=== PATIENT | female | born 1935 | race African-American/Black ===

== ENCOUNTER 2018-04-02 18:32 | Inpatient (IN) ==
--- NOTE | 2018-04-02 19:06 | ED ---
HPI General Chief Complaint: Chest Pain Stated Complaint: feels faint, trouble breathing yesterday, trouble Time Seen by Provider: 04/02/18 18:51 Source: patient Mode of arrival: ambulatory Limitations: no limitations History of Present Illness HPI narrative: 82-year-old female complains of dizziness, nausea vomiting, shortness of breath and chest discomfort. Patient states that she started having intermittent chest tightness anterior chest since last night. Patient states that the chest pain is not associate with exertion. Patient states that she has wheezing and short of breath since last night also. Patient states that she started having intermittent nausea vomiting and diarrhea this evening. Patient started having intermittent dizziness and last night also. Patient has history of COPD. Patient did use inhaler in the past month not recently. Patient has history of CAD status post cardiac cath 2 years ago and has been treated medically. Patient has history of hypertension. Patient denies history of diabetes or hyperlipidemia. Patient is a non-smoker. Patient complains of generalized malaise and weakness and near fainting today. MD complaint: Reports chest pain STEMI Alert: No Onset (ago): hour(s) Duration: intermittent Onset: during rest Pain location: Reports substernal Severity: mild Severity scale (1-10): 4 Quality: Reports tightness Pain radiation: Reports none Relieving factors: nothing Exacerbating factors: nothing Associated symptoms: Reports nausea, vomiting and dyspnea Treatments prior to arrival chest pain: Reports none Related Data Allergies Allergy/AdvReac Type Severity Reaction Status Date / Time codeine Allergy Severe RASH Verified 04/02/18 19:10 Review of Systems ROS: all other systems reviewed are negative PMFSH History History Provided By: Patient Social History Social History Smoking Status: Never smoker How Often Do You Have a Drink Containing Alcohol: Never Recent Travel in [facility] within the Last 8 Weeks: No Recent Out of Country Travel within the Last 8 Weeks: No Exam Narrative Exam Narrative: GENERAL: Well-nourished, well-developed patient. SKIN: Focused skin assessment warm/dry. HEAD: Normocephalic. EYES: No scleral icterus. No injection or drainage. NECK: Supple, trachea midline. No JVD or lymphadenopathy. CARDIOVASCULAR: Regular rate and rhythm without murmurs, gallops, or rubs. RESPIRATORY: Breath sounds equal bilaterally. No accessory muscle use. GASTROINTESTINAL: Abdomen soft, non-tender, nondistended. MUSCULOSKELETAL: No cyanosis, or edema. BACK: Nontender without obvious deformity. No CVA tenderness. Course Initial Documented Vital Signs Temperature 97.7 F 04/02/18 18:46 Pulse Rate 88 04/02/18 18:46 Respiratory Rate 22 04/02/18 18:46 Blood Pressure 202/101 H 04/02/18 18:46 Pulse Oximetry 94 L 04/02/18 18:46 Last Documented Vital Signs Temperature 97.7 F 04/02/18 18:46 Pulse Rate 70 04/02/18 19:25 Respiratory Rate 18 04/02/18 19:25 Blood Pressure 168/88 H 04/02/18 19:25 Pulse Oximetry 98 04/02/18 19:25 Medical Decision Making MDM Narrative Medical decision making narrative: 82-year-old female with nausea vomiting diarrhea and chest discomfort. History of COPD. History of CAD. Aspirin 325 mg p.o. given. Albuterol Atrovent unit dose treatment x1. Normal saline solution 100 cc an hour. Zofran 4 mg IV. Phenergan 25 mill grams IM. Medical Screen Exam Complete: Yes Emergency Medical Condition: Yes Lab Data Lab results reviewed: Yes I reviewed the patient's lab results. Result diagrams: 04/02/18 19:15 04/02/18 19:15 Lab Results 04/02/18 04/02/18 04/02/18 Range/Units 19:15 19:15 19:15 WBC 9.2 (4.0-11.0) th/mm3 RBC 4.78 (4.00-5.30) mil/mm3 Hgb 13.8 (11.6-15.3) gm/dL Hct 42.3 (35.0-46.0) % MCV 88.4 (80.0-100.0) fL MCH 28.9 (27.0-34.0) pg MCHC 32.6 (32.0-36.0) % RDW 14.5 (11.6-17.2) % Plt Count 210 (150-450) th/mm3 MPV 7.5 (7.0-11.0) fL Neut % (Auto) 47.8 (16.0-70.0) % Lymph % (Auto) 40.3 (9.0-44.0) % [place] % (Auto) 6.5 (0.0-8.0) % Eos % (Auto) 4.2 H (0.0-4.0) % Baso % (Auto) 1.2 (0.0-2.0) % Neut # (Auto) 4.4 (1.8-7.7) th/mm3 Lymph # (Auto) 3.7 (1.0-4.8) th/mm3 [place] # (Auto) 0.6 (0.0-0.9) th/mm3 Eos # (Auto) 0.4 (0.0-0.4) th/mm3 Baso # (Auto) 0.1 (0.0-0.2) th/mm3 WBC Differential . Differential Comment Auto diff final PT 10.0 (9.8-11.6) sec INR 1.0 Ratio APTT 22.9 L (23.4-31.7) sec D-Dimer Quant (PE/DVT) 1.36 H (0.00-0.50) mg/L FEU Sodium 140 (136-145) meq/L Potassium 3.8 (3.5-5.1) meq/L Chloride 107 (98-107) meq/L Carbon Dioxide 23.5 (21.0-32.0) meq/L Anion Gap 10 (5-15) meq/L BUN 20 H (7-18) mg/dL Creatinine 1.12 H (0.50-1.00) mg/dL Estimated GFR 56 L (>89) mL/min Random Glucose 131 H (74-106) mg/dL Calcium 8.5 (8.5-10.1) mg/dL Total Bilirubin 0.6 (0.2-1.0) mg/dL AST 22 (15-37) U/L ALT 15 (10-53) U/L Alkaline Phosphatase 98 (45-117) U/L Total Creatine Kinase 86 (26-192) U/L Troponin I Less than 0.02 L (0.02-0.05) ng/mL Total Protein 7.5 (6.4-8.2) g/dL Albumin 4.0 (3.4-5.0) g/dL Imaging Data Attestation: I personally reviewed and interpreted this imaging study as follows : Radiologist's impression: Chest X-Ray 04/02/18 19:01 CONCLUSION: Mild cardiomegaly with minimal bibasilar parenchymal changes 1 cm nodule right upper lobe. Chest CTA 04/02/18 20:39 CONCLUSION: 1. No evidence for pulmonary embolism. 2. Spiculated nodule right upper lobe measures 16 x 11 mm. This is concerning for neoplasm. 3. Parenchymal nodule with central cavitation left lower lobe measures 2.8 x 2.4 cm also concerning for neoplasm versus less likely infectious process. This is amenable to percutaneous CT-guided biopsy. 4. Scattered parenchymal densities in the lower lobes likely atelectasis. 5. Enlarged heterogeneous thyroid gland containing multiple nodules greater on the right. Discharge Plan Discharge Disposition Patient Disposition: 30 Still Patient Discharge Details Diagnosis: Chest pain, Gastroenteritis, Lung mass, COPD with acute exacerbation Physicians Team ED Provider: You Jorgensen Primary Care Provider: Primary Care Chasity Matthews Discharge Instructions Patient Printed Instructions: Chest Pain (ED) Discharge Interventions Interventions: Vital Signs Last Done: 04/02/18 19:25 Status ED Status: With Doctor
--- NOTE | 2018-04-02 19:28 | XR ---
EXAM DATE: 04/02/2018 7:25 PM EST AGE/SEX: 82 years / Female INDICATIONS: Short of breath and chest tightness. CLINICAL DATA: This is the patient's initial encounter. Patient reports that signs and symptoms have been present for 1 day and indicates a pain score of 1/10. MEDICAL/SURGICAL HISTORY: None. CABG. COMPARISON: No prior exams available for comparison. FINDINGS: The heart is minimally enlarged with bibasilar parenchymal changes worse on the left. Small nodule is seen laterally in the right lung measuring 1 cm. There is no pleural effusion. There is no pneumothorax. Degenerative changes about both shoulders. CONCLUSION: Mild cardiomegaly with minimal bibasilar parenchymal changes 1 cm nodule right upper lobe. Electronically signed by: Gilberto Newberry MD 04/02/2018 7:27 PM EST
[2018-04-02 19:41] LABS: Baso # (Auto) 0.1 th/mm3 (0.0-0.2); Baso % (Auto) 1.2 % (0.0-2.0); Eos # (Auto) 0.4 th/mm3 (0.0-0.4); Eos % (Auto) 4.2 % (0.0-4.0); Hematocrit 42.3 % (35.0-46.0); Hemoglobin 13.8 gm/dL (11.6-15.3); Lymph # (Auto) 3.7 th/mm3 (1.0-4.8); Lymph % (Auto) 40.3 % (9.0-44.0); Mean Corpuscular HGB Conc 32.6 % (32.0-36.0); Mean Corpuscular Hemoglobin 28.9 pg (27.0-34.0); Mean Corpuscular Volume 88.4 fL (80.0-100.0); Mean Platelet Volume 7.5 fL (7.0-11.0); Mono # (Auto) 0.6 th/mm3 (0.0-0.9); Mono % (Auto) 6.5 % (0.0-8.0); Neut # (Auto) 4.4 th/mm3 (1.8-7.7); Neut % (Auto) 47.8 % (16.0-70.0); Platelet Count 210 th/mm3 (150-450); Red Blood Count 4.78 mil/mm3 (4.00-5.30); Red Cell Distribution Width 14.5 % (11.6-17.2); White Blood Count 9.2 th/mm3 (4.0-11.0)
[2018-04-02 19:52] LABS: Activated Partial Thrombo Time 22.9 sec (23.4-31.7); D-Dimer 1.36 mg/L FEU (0.00-0.50)
[2018-04-02 20:01] LABS: Anion Gap 10 meq/L (5-15); Aspartate Aminotransferase 22 U/L (15-37); Blood Urea Nitrogen 20 mg/dL (7-18); Calcium 8.5 mg/dL (8.5-10.1); Carbon Dioxide 23.5 meq/L (21.0-32.0); Chloride 107 meq/L (98-107); Glomerular Filtration Rate 56 mL/min (>89); Glucose,Random 131 mg/dL (74-106); Potassium 3.8 meq/L (3.5-5.1); Sodium 140 meq/L (136-145)
[2018-04-02 20:02] LABS: Alanine Aminotransferase 15 U/L (10-53)
[2018-04-02 20:06] LABS: Alkaline Phosphatase 98 U/L (45-117); Total Protein 7.5 g/dL (6.4-8.2)
[2018-04-02 20:09] LABS: Creatine Kinase 86 U/L (26-192)
--- NOTE | 2018-04-02 22:04 | CT ---
EXAM DATE: 04/02/2018 9:57 PM EST AGE/SEX: 82 years / Female INDICATIONS: Dizziness with chest pressure. Elevated d-dimer; rule out pulmonary embolus. CLINICAL DATA: This is the patient's initial encounter. Patient reports that signs and symptoms have been present for 1 day and indicates a pain score of 3/10. MEDICAL/SURGICAL HISTORY: None. None. RADIATION DOSE: 10.23 CTDI (mGy) COMPARISON: No prior exams available for comparison. TECHNIQUE: Volumetric scanning was performed using a multi-row detector CT scanner during bolus infu gael of 75 ml Omnipaque 350 (iohexol) nonionic water-soluble contrast as a single exam dose. The ashley a was post processed with a variety of visualization algorithms including full volume maximum intensi ty projection and sliding thin slab reformation. Using automated exposure control and adjustment of t he mA and/or kV according to patient size, radiation dose was kept as low as reasonably achievable to obtain optimal diagnostic quality images. DICOM format image data is available electronically for r eview and comparison. FINDINGS: Pulmonary Arteries: No filling defects are seen in the pulmonary arteries out to the subsegmental ve ssels. The left and right pulmonary arteries are normal in diameter. Lung: Parenchymal nodule in the left lower lobe with small area of cavitation is seen measuring 2.8 x 2.4 cm. Scattered parenchymal densities in the lower lobes bilaterally. There is also partially spi culated nodule in the right upper lobe laterally measuring 16 x 11 mm.. Effusion: None. Mediastinum: No evidence of mediastinal or hilar adenopathy. Other: The axilla is unremarkable. Enlarged heterogeneous thyroid gland greater on the right which c ontains nodules. There is diverticulosis of the colon. CONCLUSION: 1. No evidence for pulmonary embolism. 2. Spiculated nodule right upper lobe measures 16 x 11 mm. This is concerning for neoplasm. 3. Parenchymal nodule with central cavitation left lower lobe measures 2.8 x 2.4 cm also concerning for neoplasm versus less likely infectious process. This is amenable to percutaneous CT-guided biopsy . 4. Scattered parenchymal densities in the lower lobes likely atelectasis. 5. Enlarged heterogeneous thyroid gland containing multiple nodules greater on the right. Electronically signed by: Igor Bentley MD 04/02/2018 10:03 PM EST
[2018-04-03] MEDS ORDERED: Acetaminophen 325 MG Tablet PO PRN (02:29)
[2018-04-03] MEDS ORDERED: Bisacodyl 10 MG Supp RECTAL PRN (02:29)
--- NOTE | 2018-04-03 02:39 | P.HP ---
History of Present Illness Service: [facility] Primary Care Physician: No Primary Care Physician History of Present Illness: 82-year-old female with a past medical history significant for coronary artery disease and COPD presents to the emergency department for evaluation of dizziness, nausea, vomiting, shortness of breath and chest discomfort. The patient reports she started having intermittent chest tightness since last night. She states that she had abdominal pain starting yesterday and felt as though the room was spinning around her. She has had several episodes of emesis and a sustains feeling of nausea. She denies any fever/chills. No diarrhea. No focal neurologic deficits. Review of Systems All other systems reviewed negative except as stated in HPI PMFSH - History History Provided By: Patient - Medical History Medical History: Medical History (Last Updated 04/03/18 @ 02:35 by Zaira Gilman MD) COPD (chronic obstructive pulmonary disease) Coronary artery disease History of hysterectomy - Surgical History Surgical History: Surgical History (Last Updated 04/03/18 @ 02:35 by Zaira Gilman MD) History of cataract surgery History of cholecystectomy - Family History Family History: Family History (Last Updated 04/03/18 @ 02:35 by Zaira Gilman MD) Other Coronary artery disease - Tobacco History Smoking Status: Never smoker - Alcohol History How Often Do You Have a Drink Containing Alcohol: Never - Travel History Recent Travel in the [place] Within the Last 8 Weeks: No Recent Travel Out of the Country Within the Last 8 Weeks: No - Immunization History Tetanus Immunization: Unsure Medications and Allergies Active Medications: Active Medications Acetaminophen (Tylenol) 650 mg PO Q4H PRN PRN Reason: Temp > 100.4 Al Hydroxide/Mg Hydroxide (Milk Of Magnesia Liq) 30 ml PO Q12H PRN PRN Reason: Mild Constipation Bisacodyl (Dulcolax Supp) 10 mg RECTAL DAILY PRN PRN Reason: SEVERE CONSITIPATION Heparin Sodium (Porcine) (Heparin Inj) 5,000 units SQ Q12H CINTIA Sodium Chloride (Ns Inj) 1,000 mls @ 70 mls/hr IV.CONT .[id number] CINTIA Lactulose (Lactulose Liq) 30 ml PO DAILY PRN PRN Reason: SEVERE CONSITIPATION Ondansetron HCl (Zofran Inj) 4 mg IV.PUSH Q6H PRN PRN Reason: NAUSEA OR VOMITING Senna/Docusate Sodium (Dayanna-Colace) 1 tab PO BID CINTIA Sennosides (Senokot) 17.2 mg PO Q12H PRN PRN Reason: Moderate Constipation Allergies Allergy/AdvReac Type Severity Reaction Status Date / Time codeine Allergy Severe RASH Verified 04/02/18 19:10 Home Medications Medication Instructions Recorded Confirmed Type Unable to Obtain Home Meds 04/02/18 04/02/18 History Exam Vital signs: Vital Signs 04/02/18 18:46 04/02/18 19:21 04/02/18 19:25 Temperature 97.7 F Pulse Rate 88 88 70 Respiratory Rate 22 22 18 Blood Pressure 202/101 H 168/88 H Pulse Oximetry 94 L 98 04/02/18 23:00 Temperature Pulse Rate 78 Respiratory Rate 16 Blood Pressure 112/59 L Pulse Oximetry 99 Narrative: Gen.: No acute distress Head: Normocephalic. Atraumatic. EENT: Pupils equal round and reactive to light. Nose without drainage. Airway intact. Throat without injection. Cardiovascular: Regular rate and rhythm. No murmurs, rubs or gallops. Respiratory: Lungs clear to auscultation bilaterally. No wheezes or rhonchi. Abdomen: Soft, nontender, nondistended. No peritoneal signs. Musculoskeletal: No gross deformities. No edema. Skin: No obvious rashes or erythema. Neuro: Sensory and motor grossly intact. Cranial nerves II through XII grossly intact. Results - Labs CBC & Chem 7: 04/02/18 19:15 04/02/18 19:15 Labs: Laboratory Results - last 24 hr 04/02/18 04/02/18 04/02/18 19:15 19:15 19:15 WBC 9.2 RBC 4.78 Hgb 13.8 Hct 42.3 MCV 88.4 MCH 28.9 MCHC 32.6 RDW 14.5 Plt Count 210 MPV 7.5 Neut % (Auto) 47.8 Lymph % (Auto) 40.3 [place] % (Auto) 6.5 Eos % (Auto) 4.2 H Baso % (Auto) 1.2 Neut # (Auto) 4.4 Lymph # (Auto) 3.7 [place] # (Auto) 0.6 Eos # (Auto) 0.4 Baso # (Auto) 0.1 WBC Differential . Differential Comment Auto diff final PT 10.0 INR 1.0 APTT 22.9 L D-Dimer Quant (PE/DVT) 1.36 H Sodium 140 Potassium 3.8 Chloride 107 Carbon Dioxide 23.5 Anion Gap 10 BUN 20 H Creatinine 1.12 H Estimated GFR 56 L Random Glucose 131 H Calcium 8.5 Total Bilirubin 0.6 AST 22 ALT 15 Alkaline Phosphatase 98 Total Creatine Kinase 86 Troponin I Less than 0.02 L Total Protein 7.5 Albumin 4.0 - Imaging Impressions Chest X-Ray 04/02/18 19:01 CONCLUSION: Mild cardiomegaly with minimal bibasilar parenchymal changes 1 cm nodule right upper lobe. Chest CTA 04/02/18 20:39 CONCLUSION: 1. No evidence for pulmonary embolism. 2. Spiculated nodule right upper lobe measures 16 x 11 mm. This is concerning for neoplasm. 3. Parenchymal nodule with central cavitation left lower lobe measures 2.8 x 2.4 cm also concerning for neoplasm versus less likely infectious process. This is amenable to percutaneous CT-guided biopsy. 4. Scattered parenchymal densities in the lower lobes likely atelectasis. 5. Enlarged heterogeneous thyroid gland containing multiple nodules greater on the right. Caprini VTE Risk Assessment Caprini VTE Risk Assessment: Moderate/High Risk (score >= 2) Caprini Risk Assessment Model: Point Value = 1 Point Value = 2 Point Value = 3 Point Value = 5 Age 41-60 Minor surgery BMI > 25 kg/m2 Swollen legs Varicose veins or History of unexplained or recurrent spontaneous Oral contraceptives or hormone replacement Sepsis (< 1 month) Serious lung disease, including pneumonia (< 1 month) Abnormal pulmonary function Acute myocardial infarction Congestive heart failure (< 1 month) History of inflammatory bowel disease Medical patient at bed rest Age 61-74 Arthroscopic surgery Major open surgery (> 45 min) Laparoscopic surgery (> 45 min) Malignancy Confined to bed (> 72 hours) Immobilizing plaster cast Central venous access Age >= 75 History of VTE Family history of VTE Factor V Leiden Prothrombin [id number] Lupus anticoagulant Anticardiolipin antibodies Elevated serum homocysteine Heparin-induced thrombocytopenia Other congenital or acquired thrombophilia Stroke (< 1 month) Elective arthroplasty Hip, pelvis, or leg fracture Acute spinal cord injury (< 1 month) Prophylaxis Regimen: Total Risk Factor Score Risk Level Prophylaxis Regimen 0-1 Low Early ambulation 2 Moderate Order ONE of the following: *Sequential Compression Device (SCD) *Heparin 5000 units SQ BID 3-4 Higher Order ONE of the following medications: *Heparin 5000 units SQ TID *Enoxaparin/Lovenox 40 mg SQ daily (WT < 150 kg, CrCl > 30 mL/min) *Enoxaparin/Lovenox 30 mg SQ daily (WT < 150 kg, CrCl > 10-29 mL/min) *Enoxaparin/Lovenox 30 mg SQ BID (WT < 150 kg, CrCl > 30 mL/min) AND/OR *Sequential Compression Device (SCD) 5 or more Highest Order ONE of the following medications: *Heparin 5000 units SQ TID (Preferred with Epidurals) *Enoxaparin/Lovenox 40 mg SQ daily (WT < 150 kg, CrCl > 30 mL/min) *Enoxaparin/Lovenox 30 mg SQ daily (WT < 150 kg, CrCl > 10-29 mL/min) *Enoxaparin/Lovenox 30 mg SQ BID (WT < 150 kg, CrCl > 30 mL/min) AND *Sequential Compression Device (SCD) Assessment and Plan - Plan Assessment/plan: 1. Chest pain/shortness of breath Initial troponin negative EKG shows normal sinus rhythm, no ST segment elevations or depressions, personally reviewed ACS rule out pending; serial troponins/EKGs Aspirin 2. Nausea/vomiting Resolved Suspect secondary to gastroenteritis 3. CAD/COPD Continue home medications once reconciled FEN N.p.o. Electrolytes: Monitor and replete as needed NS at 70 cc/hour Heparin
[2018-04-03] MEDS: Sod Chloride 0.9% Inj 1,000 ML IV.CONT SCH (02:43)
[2018-04-03] MEDS ORDERED: Heparin - SQ 10,000 UNITS/ML Vial SQ SCH ×2 (03:00→09:00)
[2018-04-03 04:32] LABS: Troponin I 0.56 ng/mL (0.02-0.05)
[2018-04-03 08:09] LABS: Baso % (Auto) 0.5 % (0.0-2.0); Eos # (Auto) 0.2 th/mm3 (0.0-0.4); Eos % (Auto) 3.1 % (0.0-4.0); Hematocrit 38.2 % (35.0-46.0); Hemoglobin 12.7 gm/dL (11.6-15.3); Lymph # (Auto) 1.9 th/mm3 (1.0-4.8); Lymph % (Auto) 31.4 % (9.0-44.0); Mean Corpuscular HGB Conc 33.3 % (32.0-36.0); Mean Corpuscular Hemoglobin 29.7 pg (27.0-34.0); Mean Corpuscular Volume 89.4 fL (80.0-100.0); Mean Platelet Volume 7.9 fL (7.0-11.0); Mono # (Auto) 0.4 th/mm3 (0.0-0.9); Mono % (Auto) 6.5 % (0.0-8.0); Neut # (Auto) 3.6 th/mm3 (1.8-7.7); Neut % (Auto) 58.5 % (16.0-70.0); Platelet Count 179 th/mm3 (150-450); Red Blood Count 4.28 mil/mm3 (4.00-5.30); Red Cell Distribution Width 14.4 % (11.6-17.2); White Blood Count 6.2 th/mm3 (4.0-11.0)
[2018-04-03 08:27] LABS: Calcium 8.2 mg/dL (8.5-10.1); Carbon Dioxide 30.2 meq/L (21.0-32.0); Potassium 3.8 meq/L (3.5-5.1)
[2018-04-03 08:35] LABS: Troponin I 0.72 ng/mL (0.02-0.05)
[2018-04-03 08:47] LABS: CKMB Percent 1.6 % (0.0-4.0); Creatine Kinase MB 3.2 ng/mL (0.5-3.6)
[2018-04-03] MEDS: Senna/Docusate Sodium 8.6/50 MG Tablet PO SCH ×2 (09:21→21:59)
[2018-04-03] MEDS ORDERED: Heparin Drip 25,000 UNIT/250 ML BAG IV.CONT PRN (09:47)
--- NOTE | 2018-04-03 09:58 | P.PNIM ---
Subjective Interval history: Patient is lying down in bed, she currently denies any active chest pain. Physical Exam Vital signs: Vital Signs 04/02/18 18:46 04/02/18 19:21 04/02/18 19:25 Temperature 97.7 F Pulse Rate 88 88 70 Respiratory Rate 22 22 18 Blood Pressure 202/101 H 168/88 H Pulse Oximetry 94 L 98 04/02/18 23:00 04/03/18 00:45 04/03/18 02:45 Temperature Pulse Rate 78 66 66 Respiratory Rate 16 16 15 Blood Pressure 112/59 L 116/57 L 123/59 L Pulse Oximetry 99 99 99 04/03/18 06:55 04/03/18 09:17 Temperature 98.1 F Pulse Rate 66 65 Respiratory Rate 18 16 Blood Pressure 136/65 136/73 Pulse Oximetry 97 97 Narrative: General patient in no acute distress currently HEENT extraocular movements are intact, clear oropharyngeal mucosa, no JVD Cardiovascular S1-S2 audible, no murmurs rubs or gallops Respiratory clear to auscultation bilaterally Abdomen soft, nontender, nondistended, normal bowel sounds Extremities no edema 2+ distal pulses in bilateral upper and lower extremities Neuro cranial nerves II through XII intact Results - Labs CBC & Chem 7: 04/03/18 05:48 04/03/18 05:48 Laboratory Results - last 24 hr 04/02/18 04/02/18 04/02/18 19:15 19:15 19:15 WBC 9.2 RBC 4.78 Hgb 13.8 Hct 42.3 MCV 88.4 MCH 28.9 MCHC 32.6 RDW 14.5 Plt Count 210 MPV 7.5 Neut % (Auto) 47.8 Lymph % (Auto) 40.3 [place] % (Auto) 6.5 Eos % (Auto) 4.2 H Baso % (Auto) 1.2 Neut # (Auto) 4.4 Lymph # (Auto) 3.7 [place] # (Auto) 0.6 Eos # (Auto) 0.4 Baso # (Auto) 0.1 WBC Differential . Differential Comment Auto diff final PT 10.0 INR 1.0 APTT 22.9 L D-Dimer Quant (PE/DVT) 1.36 H Sodium 140 Potassium 3.8 Chloride 107 Carbon Dioxide 23.5 Anion Gap 10 BUN 20 H Creatinine 1.12 H Estimated GFR 56 L Random Glucose 131 H Calcium 8.5 Total Bilirubin 0.6 AST 22 ALT 15 Alkaline Phosphatase 98 Total Creatine Kinase 86 CK-MB (CK-2) CK-MB (CK-2) % Troponin I Less than 0.02 L Total Protein 7.5 Albumin 4.0 04/03/18 04/03/18 04/03/18 02:50 05:48 05:48 WBC 6.2 RBC 4.28 Hgb 12.7 Hct 38.2 MCV 89.4 MCH 29.7 MCHC 33.3 RDW 14.4 Plt Count 179 MPV 7.9 Neut % (Auto) 58.5 Lymph % (Auto) 31.4 [place] % (Auto) 6.5 Eos % (Auto) 3.1 Baso % (Auto) 0.5 Neut # (Auto) 3.6 Lymph # (Auto) 1.9 [place] # (Auto) 0.4 Eos # (Auto) 0.2 Baso # (Auto) 0.0 WBC Differential . Differential Comment Auto diff final PT INR APTT D-Dimer Quant (PE/DVT) Sodium 144 Potassium 3.8 Chloride 108 H Carbon Dioxide 30.2 Anion Gap 6 BUN 18 Creatinine 0.92 Estimated GFR 70 L Random Glucose 79 Calcium 8.2 L Total Bilirubin AST ALT Alkaline Phosphatase Total Creatine Kinase 191 199 H CK-MB (CK-2) 3.2 CK-MB (CK-2) % 1.6 Troponin I 0.56 H D 0.72 H* D Total Protein Albumin - Imaging Impressions Chest X-Ray 04/02/18 19:01 CONCLUSION: Mild cardiomegaly with minimal bibasilar parenchymal changes 1 cm nodule right upper lobe. Chest CTA 04/02/18 20:39 CONCLUSION: 1. No evidence for pulmonary embolism. 2. Spiculated nodule right upper lobe measures 16 x 11 mm. This is concerning for neoplasm. 3. Parenchymal nodule with central cavitation left lower lobe measures 2.8 x 2.4 cm also concerning for neoplasm versus less likely infectious process. This is amenable to percutaneous CT-guided biopsy. 4. Scattered parenchymal densities in the lower lobes likely atelectasis. 5. Enlarged heterogeneous thyroid gland containing multiple nodules greater on the right. Assessment and Plan - Plan This patient is an 82-year-old female with a diagnosis of hypertension, dyslipidemia as per the patient. The patient also has extensive tobacco smoking history approximately half pack per day for 25 years. The patient quit smoking approximately 19 years ago. She presents to our emergency department with complaints of left-sided dull chest pain that has been on and off for the past couple of days. 1. Non-ST segment elevation HI Patient presented with the symptoms mentioned above. EKG shows normal sinus rhythm no acute ST segment or T wave changes. Troponins initially were negative however are now increasing to 0.72. Follow- up troponin is pending. Patient was given aspirin. She will be started on Plavix and heparin drip. A statin and beta-vincent were also added to the patient's medication regimen. Hemoglobin is stable, no obvious bleeding noted from the patient. The patient agrees to starting heparin drip after the risks and benefits were discussed with the patient. Cardiology has been consulted to evaluate the patient. She will be given morphine and nitroglycerin as needed for chest pain. Currently there is no active chest pain. As per the patient she states that she may have had a cardiac catheterization done in [place] by her processing inspector who is Dr. Rodriguez and she says that the cardiac catheterization did not show any significant abnormalities. 2. Hypertension Continue current medication regimen. Her blood pressure medications will be adjusted as needed. 3. Pulmonary nodules CT of the chest was done which was negative for pulmonary embolus. Findings did show a right upper lobe 16 x 11 mm nodule and a left lower lobe 2.8 x 2.4 cm lesion which are findings concerning for possible malignancy. Once the patient has been stabilized she would likely need percutaneous biopsy of the nodules given her history. DVT prophylaxis, patient is currently on heparin drip.
[2018-04-03] MEDS: Metoprolol Tartrate 25 MG Tablet PO SCH ×2 (10:48→21:57)
[2018-04-03 11:26] LABS: Activated Partial Thrombo Time 26.6 sec (23.4-31.7); INR 1.1 Ratio; Prothrombin Time 10.7 sec (9.8-11.6)
--- NOTE | 2018-04-03 15:28 | P.CONCA ---
History of Present Illness Service: CARDIOLOGY service call Consult date: 04/03/18 Requesting Physician: Charlette Lagos Reason for Consult: NSTEMI Primary Care Provider: No Primary Care Physician Chief Complaint: chest pain History of Present Illness: 82 yo lady with HTN, HLD, COPD, former tobacco use and quit 19 years ago admitted 04/02/2018 with chest pain. She repots she was having dinner 2 nights ago and developed SSCP, nonradiating, but with associated nausea, dizziness and vomiting. Was in usual state of health prior to abrupt onset other than did feel some fatigue earlier in the day. In ER initial troponin was <0.02 and ECG nonischemic. She was given Aspirin and observed. Repeat troponin was elevated to 0.72 and repeat ECG shows dynamic anterior T-wave changes suggestive of ischemia. She was chest pain free during ER evaluation and has not had recurrence of symptoms. Was started on metoprolol tartrate 12.5mg bid, atorvastatin 40mg daily, aspirin 325mg daily and heparin gtt per [facility] protocol. She was written for Plavix 75mg daily but has yet to receive any. She underwent CTA chest which was negative for PE, however noted RUL and LLL spiculated mass concerning for malignancy. Of note, patient reports prior LHC by Dr Rodriguez, timber framer in [place], approx 2-3 years ago with "abnormality in the lower vessel of the heart" but no PCI was performed. Patient is currently feeling in usual state of health with no complaints. She does report an episode of hemoptysis in setting of epistaxis while taking Aspirin about 1 year ago but no bleeding issues since. Review of Systems All other systems reviewed negative except as stated in HPI PMFSH - History History Provided By: Patient, Family Member - Medical History Medical History: Medical History (Last Updated 04/03/18 @ 02:35 by Zaira Gilman MD) COPD (chronic obstructive pulmonary disease) Coronary artery disease History of hysterectomy - Surgical History Surgical History: Surgical History (Last Updated 04/03/18 @ 02:35 by Zaira Gilman MD) History of cataract surgery History of cholecystectomy - Family History Family History: Family History (Last Updated 04/03/18 @ 02:35 by Zaira Gilman MD) Other Coronary artery disease - Tobacco History Second Hand Smoke Exposure: No Tobacco Use In Past 30 Days: No Smoking Status: Former smoker Tobacco Type: Cigarettes - Alcohol History How Often Do You Have a Drink Containing Alcohol: 2 to 4 times a month - Substance Use History Substance History: No History of Abuse - Travel History Recent Travel in the [place] Within the Last 8 Weeks: No Recent Travel Out of the Country Within the Last 8 Weeks: No - Immunization History Tetanus Immunization: Unsure Hx Influenza Vaccine This Season: Yes Medications and Allergies Active Medications: Active Medications Acetaminophen (Tylenol) 650 mg PO Q4H PRN PRN Reason: Temp > 100.4 Al Hydroxide/Mg Hydroxide (Milk Of Magnesia Liq) 30 ml PO Q12H PRN PRN Reason: Mild Constipation Aspirin (Aspirin Chew) 81 mg PO DAILY [facility] Atorvastatin Calcium (Lipitor) 40 mg PO HS [facility] Bisacodyl (Dulcolax Supp) 10 mg RECTAL DAILY PRN PRN Reason: SEVERE CONSITIPATION Sodium Chloride (Ns Inj) 1,000 mls @ 70 mls/hr IV.CONT .[id number] [facility] Last Admin: 04/03/18 02:43 Dose: 70 mls/hr Heparin Sodium/Dextrose (Heparin/D5w 25,000 U/250 Ml) 25,000 unit in 250 mls @ 9 mls/hr IV.CONT TITRATE PRN; Protocol PRN Reason: Per Protocol Last Admin: 04/03/18 11:46 Dose: 900 units/hr, 9 mls/hr Lactulose (Lactulose Liq) 30 ml PO DAILY PRN PRN Reason: SEVERE CONSITIPATION Metoprolol Tartrate (Lopressor) 12.5 mg PO BID [facility] Last Admin: 04/03/18 10:48 Dose: 12.5 mg Miscellaneous (Pill Splitter) 1 each OTHER UNSCH PRN PRN Reason: PILL SPLITTER Nitroglycerin (Nitrostat Sl) 0.4 mg SL Q5M PRN PRN Reason: CHEST PAIN Ondansetron HCl (Zofran Inj) 4 mg IV.PUSH Q6H PRN PRN Reason: NAUSEA OR VOMITING Senna/Docusate Sodium (Dayanna-Colace) 1 tab PO BID [facility] Last Admin: 04/03/18 09:21 Dose: Not Given Sennosides (Senokot) 17.2 mg PO Q12H PRN PRN Reason: Moderate Constipation Allergies Allergy/AdvReac Type Severity Reaction Status Date / Time codeine Allergy Severe RASH Verified 04/02/18 19:10 Home Medications Medication Instructions Recorded Confirmed Type Unable to Obtain Home Meds 04/02/18 04/02/18 History Exam Vital signs: Vital Signs 04/02/18 18:46 04/02/18 19:21 04/02/18 19:25 Temperature 97.7 F Pulse Rate 88 88 70 Respiratory Rate 22 22 18 Blood Pressure 202/101 H 168/88 H Pulse Oximetry 94 L 98 04/02/18 23:00 04/03/18 00:45 04/03/18 02:45 Temperature Pulse Rate 78 66 66 Respiratory Rate 16 16 15 Blood Pressure 112/59 L 116/57 L 123/59 L Pulse Oximetry 99 99 99 04/03/18 06:55 04/03/18 09:17 04/03/18 13:57 Temperature 98.1 F Pulse Rate 66 65 Respiratory Rate 18 16 Blood Pressure 136/65 136/73 Pulse Oximetry 97 97 92 L 04/03/18 14:01 Temperature 98 F Pulse Rate 60 Respiratory Rate 17 Blood Pressure 118/62 Pulse Oximetry 93 L Intake & Output 04/02/18 04/03/18 04/03/18 18:59 06:59 18:59 Weight 72.575 kg Other: Date of Last Bowel Movement 04/03/18 Weight On Admission 72.575 kg Narrative: GENERAL: comfortable SKIN: Warm and dry. HEAD: Atraumatic. Normocephalic. EYES: Pupils equal and round. No scleral icterus. No injection or drainage. ENT: No nasal bleeding or discharge. Mucous membranes pink and moist. NECK: Trachea midline. No JVD. CARDIOVASCULAR: Regular rate and rhythm. RESPIRATORY: No accessory muscle use. Clear to auscultation. Breath sounds equal bilaterally. GASTROINTESTINAL: Abdomen soft, non-tender, nondistended. MUSCULOSKELETAL: Extremities without clubbing, cyanosis, or edema. No obvious deformities. NEUROLOGICAL: Awake and alert. No obvious cranial nerve deficits. Motor grossly within normal limits. Five out of 5 muscle strength in the arms and legs. Normal speech. PSYCHIATRIC: Appropriate mood and affect; insight and judgment normal. Results 04/03/18 05:48 04/03/18 05:48 Cardiac Enzymes 04/02/18 04/03/18 04/03/18 Range/Units 19:15 02:50 05:48 AST 22 (15-37) U/L CK-MB (CK-2) 3.2 (0.5-3.6) ng/mL Troponin I Less than 0.02 L 0.56 H D 0.72 H* D (0.02-0.05) ng/mL Coagulation 04/02/18 04/03/18 Range/Units 19:15 10:57 PT 10.0 10.7 (9.8-11.6) sec APTT 22.9 L 26.6 (23.4-31.7) sec CBC 04/02/18 04/03/18 Range/Units 19:15 05:48 WBC 9.2 6.2 (4.0-11.0) th/mm3 RBC 4.78 4.28 (4.00-5.30) mil/mm3 Hgb 13.8 12.7 (11.6-15.3) gm/dL Hct 42.3 38.2 (35.0-46.0) % Plt Count 210 179 (150-450) th/mm3 Neut # (Auto) 4.4 3.6 (1.8-7.7) th/mm3 Lymph # (Auto) 3.7 1.9 (1.0-4.8) th/mm3 [place] # (Auto) 0.6 0.4 (0.0-0.9) th/mm3 Eos # (Auto) 0.4 0.2 (0.0-0.4) th/mm3 Baso # (Auto) 0.1 0.0 (0.0-0.2) th/mm3 Comprehensive Metabolic Panel 04/02/18 04/03/18 Range/Units 19:15 05:48 Sodium 140 144 (136-145) meq/L Potassium 3.8 3.8 (3.5-5.1) meq/L Chloride 107 108 H (98-107) meq/L Carbon Dioxide 23.5 30.2 (21.0-32.0) meq/L BUN 20 H 18 (7-18) mg/dL Creatinine 1.12 H 0.92 (0.50-1.00) mg/dL Calcium 8.5 8.2 L (8.5-10.1) mg/dL AST 22 (15-37) U/L ALT 15 (10-53) U/L Alkaline Phosphatase 98 (45-117) U/L Total Protein 7.5 (6.4-8.2) g/dL Albumin 4.0 (3.4-5.0) g/dL Intake and Output 04/03/18 04/03/18 04/03/18 06:59 14:59 22:59 Other: Date of Last Bowel Movement 04/03/18 Weight 72.575 kg Weight On Admission 72.575 kg Patient Weight 04/04/18 06:59 Weight 72.575 kg - Imaging and Cardiology Imaging: Impressions Chest X-Ray 04/02/18 19:01 CONCLUSION: Mild cardiomegaly with minimal bibasilar parenchymal changes 1 cm nodule right upper lobe. Chest CTA 04/02/18 20:39 CONCLUSION: 1. No evidence for pulmonary embolism. 2. Spiculated nodule right upper lobe measures 16 x 11 mm. This is concerning for neoplasm. 3. Parenchymal nodule with central cavitation left lower lobe measures 2.8 x 2.4 cm also concerning for neoplasm versus less likely infectious process. This is amenable to percutaneous CT-guided biopsy. 4. Scattered parenchymal densities in the lower lobes likely atelectasis. 5. Enlarged heterogeneous thyroid gland containing multiple nodules greater on the right. Assessment and Plan - Plan Assessment: NSTEMI - currently CP free Lung masses in RUL and LLL suspicious for malignancy HTN - currently normotensive HLD COPD Former smoker Recommendation: -continue ASA 81mg daily indefinitely -agree with atorvastatin 40mg daily and metoprolol 12.5mg bid with holding parameters -hold off on plavix for now for the off chance that patient has mvCAD and would require CABG as lung mass bx may be completed at that time -echocardiogram to evaluate LVEF -continue Heparin gtt -NPO tomorrow for [facility] with Dr Valera. Case discussed and recommend BMS placement if PCI is indicated at which time DAPT with ASA/Plavix would need to be continued for minimum 1 month uninterrupted. Patient and her daughter are aware that this would delay diagnosis of lung mass as she would not be able to have CT-guided bx prior to 1 month of DAPT, at which time Plavix could be held 5 days prior to procedure and then resumed when bleeding risk is acceptable for minimum DAPT treatment duration of 1 year for NSTEMI.
--- NOTE | 2018-04-03 15:56 | ECG ---
Date Performed: 04/02/2018 Time Performed: 18:58:19 PTAGE: 82 years EKG: Sinus rhythm WITH OCCASIONAL VENTRICULAR PREMATURE COMPLEXES BORDERLINE ECG NO PREVIOUS TRACING DOCTOR: Emi Phan Interpretating Date/Time 04/03/2018 15:55:16
--- NOTE | 2018-04-03 15:57 | ECG ---
Date Performed: 04/03/2018 Time Performed: 03:09:30 PTAGE: 82 years EKG: Sinus rhythm NONSPECIFIC T-WAVE ABNORMALITY BORDERLINE ECG PREVIOUS TRACING : 04/02/2018 18.58 Since the previous tracing, no significant change noted DOCTOR: Emi Phan Interpretating Date/Time 04/03/2018 15:55:34
[2018-04-04 02:17] LABS: Hematocrit 37.8 % (35.0-46.0); Hemoglobin 12.6 gm/dL (11.6-15.3); Mean Corpuscular HGB Conc 33.4 % (32.0-36.0); Mean Corpuscular Hemoglobin 29.8 pg (27.0-34.0); Mean Corpuscular Volume 89.3 fL (80.0-100.0); Mean Platelet Volume 7.6 fL (7.0-11.0); Platelet Count 159 th/mm3 (150-450); Red Blood Count 4.24 mil/mm3 (4.00-5.30); Red Cell Distribution Width 14.3 % (11.6-17.2); White Blood Count 8.3 th/mm3 (4.0-11.0)
[2018-04-04 02:39] LABS: Calcium 7.9 mg/dL (8.5-10.1); Carbon Dioxide 26.3 meq/L (21.0-32.0); Potassium 3.7 meq/L (3.5-5.1)
[2018-04-04] MEDS: Sod Chloride 0.9% Inj 1,000 ML IV.CONT SCH ×2 (04:56→08:58)
--- NOTE | 2018-04-04 07:13 | P.PNCA ---
Subjective Interval history: No overnight events. No chest pain. tele - NSR on heparin gtt for LHC today with Minor Medications and Allergies Active Medications: Active Medications Acetaminophen (Tylenol) 650 mg PO Q4H PRN PRN Reason: Temp > 100.4 Last Admin: 04/03/18 22:01 Dose: 650 mg Al Hydroxide/Mg Hydroxide (Milk Of Magnesia Liq) 30 ml PO Q12H PRN PRN Reason: Mild Constipation Aspirin (Aspirin Chew) 81 mg PO DAILY [facility] Atorvastatin Calcium (Lipitor) 40 mg PO HS [facility] Last Admin: 04/03/18 21:51 Dose: Not Given Bisacodyl (Dulcolax Supp) 10 mg RECTAL DAILY PRN PRN Reason: SEVERE CONSITIPATION Sodium Chloride (Ns Inj) 1,000 mls @ 70 mls/hr IV.CONT .[id number] [facility] Last Admin: 04/04/18 04:56 Dose: 70 mls/hr Heparin Sodium/Dextrose (Heparin/D5w 25,000 U/250 Ml) 25,000 unit in 250 mls @ 9 mls/hr IV.CONT TITRATE PRN; Protocol PRN Reason: Per Protocol Last Titration: 04/03/18 18:36 Dose: 1,000 units/hr, 10 mls/hr Lactulose (Lactulose Liq) 30 ml PO DAILY PRN PRN Reason: SEVERE CONSITIPATION Metoprolol Tartrate (Lopressor) 12.5 mg PO BID [facility] Last Admin: 04/03/18 21:57 Dose: 12.5 mg Miscellaneous (Pill Splitter) 1 each OTHER UNSCH PRN PRN Reason: PILL SPLITTER Nitroglycerin (Nitrostat Sl) 0.4 mg SL Q5M PRN PRN Reason: CHEST PAIN Ondansetron HCl (Zofran Inj) 4 mg IV.PUSH Q6H PRN PRN Reason: NAUSEA OR VOMITING Senna/Docusate Sodium (Dayanna-Colace) 1 tab PO BID [facility] Last Admin: 04/03/18 21:59 Dose: Not Given Sennosides (Senokot) 17.2 mg PO Q12H PRN PRN Reason: Moderate Constipation Allergies Allergy/AdvReac Type Severity Reaction Status Date / Time codeine Allergy Severe RASH Verified 04/02/18 19:10 Home Medications Medication Instructions Recorded Confirmed Type Unable to Obtain Home Meds 04/02/18 04/02/18 History Physical Exam Vital signs: Vital Signs 04/03/18 09:17 04/03/18 13:57 04/03/18 13:59 Temperature 98.1 F Pulse Rate 65 60 Respiratory Rate 16 Blood Pressure 136/73 Pulse Oximetry 97 92 L 04/03/18 14:01 04/03/18 15:59 04/03/18 16:13 Temperature 98 F 98.2 F Pulse Rate 60 64 66 Respiratory Rate 17 17 Blood Pressure 118/62 120/89 Pulse Oximetry 93 L 92 L 04/03/18 16:59 04/03/18 17:00 04/03/18 18:34 Temperature Pulse Rate 70 70 71 Respiratory Rate Blood Pressure Pulse Oximetry 04/03/18 19:00 04/03/18 20:00 04/03/18 21:00 Temperature 98.4 F Pulse Rate 63 64 64 Respiratory Rate 16 Blood Pressure 114/63 Pulse Oximetry 92 L 04/03/18 22:00 04/03/18 23:00 04/04/18 00:00 Temperature 98.3 F Pulse Rate 78 63 60 Respiratory Rate 14 Blood Pressure 111/60 Pulse Oximetry 89 L 04/04/18 01:00 04/04/18 02:00 04/04/18 03:00 Temperature Pulse Rate 62 61 60 Respiratory Rate Blood Pressure Pulse Oximetry 04/04/18 04:00 04/04/18 05:00 04/04/18 06:00 Temperature 97.5 F L Pulse Rate 59 L 60 61 Respiratory Rate 16 Blood Pressure 120/60 Pulse Oximetry 91 L Intake & Output 04/03/18 04/04/18 04/04/18 18:59 06:59 18:59 Intake Total 1240 / 1240 Output Total 350 / 350 Balance 890 / 890 Weight 72.575 kg 77.7 kg Intake: IV 1000 / 1000 NS Inj 1,000 ML @ 70 mls/hr IV. 1000 / 1000 CONT .[id number] [facility] Rx#:[id number] Oral 240 / 240 Output: Urine 350 / 350 Other: Date of Last Bowel Movement 04/03/18 04/03/18 Weight On Admission 72.575 kg Narrative: GENERAL: comfortable SKIN: Warm and dry. HEAD: Atraumatic. Normocephalic. EYES: Pupils equal and round. No scleral icterus. No injection or drainage. ENT: No nasal bleeding or discharge. Mucous membranes pink and moist. NECK: Trachea midline. No JVD. CARDIOVASCULAR: Regular rate and rhythm. RESPIRATORY: No accessory muscle use. Clear to auscultation. Breath sounds equal bilaterally. GASTROINTESTINAL: Abdomen soft, non-tender, nondistended. MUSCULOSKELETAL: Extremities without clubbing, cyanosis, or edema. No obvious deformities. NEUROLOGICAL: Awake and alert. No obvious cranial nerve deficits. Motor grossly within normal limits. Five out of 5 muscle strength in the arms and legs. Normal speech. PSYCHIATRIC: Appropriate mood and affect; insight and judgment normal. Results 04/04/18 01:54 04/04/18 01:54 Cardiac Enzymes 04/02/18 04/03/18 04/03/18 Range/Units 19:15 02:50 05:48 AST 22 (15-37) U/L CK-MB (CK-2) 3.2 (0.5-3.6) ng/mL Troponin I Less than 0.02 L 0.56 H D 0.72 H* D (0.02-0.05) ng/mL 04/03/18 Range/Units 14:49 AST (15-37) U/L CK-MB (CK-2) (0.5-3.6) ng/mL Troponin I 0.40 H D (0.02-0.05) ng/mL Coagulation 04/02/18 04/03/18 04/03/18 Range/Units 19:15 10:57 17:46 PT 10.0 10.7 (9.8-11.6) sec APTT 22.9 L 26.6 35.7 H D (23.4-31.7) sec 04/04/18 Range/Units 01:54 PT (9.8-11.6) sec APTT 53.6 H D (23.4-31.7) sec CBC 04/02/18 04/03/18 04/04/18 Range/Units 19:15 05:48 01:54 WBC 9.2 6.2 8.3 (4.0-11.0) th/mm3 RBC 4.78 4.28 4.24 (4.00-5.30) mil/mm3 Hgb 13.8 12.7 12.6 (11.6-15.3) gm/dL Hct 42.3 38.2 37.8 (35.0-46.0) % Plt Count 210 179 159 (150-450) th/mm3 Neut # (Auto) 4.4 3.6 (1.8-7.7) th/mm3 Lymph # (Auto) 3.7 1.9 (1.0-4.8) th/mm3 [place] # (Auto) 0.6 0.4 (0.0-0.9) th/mm3 Eos # (Auto) 0.4 0.2 (0.0-0.4) th/mm3 Baso # (Auto) 0.1 0.0 (0.0-0.2) th/mm3 Comprehensive Metabolic Panel 04/02/18 04/03/18 04/04/18 Range/Units 19:15 05:48 01:54 Sodium 140 144 143 (136-145) meq/L Potassium 3.8 3.8 3.7 (3.5-5.1) meq/L Chloride 107 108 H 111 H (98-107) meq/L Carbon Dioxide 23.5 30.2 26.3 (21.0-32.0) meq/L BUN 20 H 18 19 H (7-18) mg/dL Creatinine 1.12 H 0.92 0.96 (0.50-1.00) mg/dL Calcium 8.5 8.2 L 7.9 L (8.5-10.1) mg/dL AST 22 (15-37) U/L ALT 15 (10-53) U/L Alkaline Phosphatase 98 (45-117) U/L Total Protein 7.5 (6.4-8.2) g/dL Albumin 4.0 (3.4-5.0) g/dL Intake and Output 04/03/18 04/04/18 04/04/18 22:59 06:59 14:59 Intake Total 1240 / 1240 Output Total 350 / 350 Balance 890 / 890 Intake: IV 1000 / 1000 NS Inj 1,000 ML @ 70 mls/hr IV. 1000 / 1000 CONT .[id number] [facility] Rx#:[id number] Oral 240 / 240 Output: Urine 350 / 350 Other: Date of Last Bowel Movement 04/03/18 04/03/18 Weight 77.7 kg - Imaging and Cardiology Imaging: Impressions Chest X-Ray 04/02/18 19:01 CONCLUSION: Mild cardiomegaly with minimal bibasilar parenchymal changes 1 cm nodule right upper lobe. Chest CTA 04/02/18 20:39 CONCLUSION: 1. No evidence for pulmonary embolism. 2. Spiculated nodule right upper lobe measures 16 x 11 mm. This is concerning for neoplasm. 3. Parenchymal nodule with central cavitation left lower lobe measures 2.8 x 2.4 cm also concerning for neoplasm versus less likely infectious process. This is amenable to percutaneous CT-guided biopsy. 4. Scattered parenchymal densities in the lower lobes likely atelectasis. 5. Enlarged heterogeneous thyroid gland containing multiple nodules greater on the right. Assessment and Plan - Plan Assessment: NSTEMI - currently CP free Lung masses in RUL and LLL suspicious for malignancy HTN - currently normotensive HLD COPD Former smoker Recommendation: -continue ASA 81mg daily indefinitely -continue atorvastatin 40mg daily and metoprolol 12.5mg bid -echocardiogram to evaluate LVEF -continue Heparin gtt, stop 30 minutes prior to C today -NPO today for [facility] with Dr Valera. Case discussed and recommend BMS placement if PCI is indicated at which time DAPT with ASA/Plavix would need to be continued for minimum 1 month uninterrupted. Patient and her daughter are aware that this would delay diagnosis of lung mass as she would not be able to have CT -guided bx prior to 1 month of DAPT, at which time Plavix could be held 5 days prior to procedure and then resumed when bleeding risk is acceptable for minimum DAPT treatment duration of 1 year for NSTEMI.
--- NOTE | 2018-04-04 08:32 | P.PN ---
Subjective Interval history: had a good night no chest discomfort or shortness of breath telemetry in Physical Exam Vital signs: Vital Signs 04/03/18 09:17 04/03/18 13:57 04/03/18 13:59 Temperature 98.1 F Pulse Rate 65 60 Respiratory Rate 16 Blood Pressure 136/73 Pulse Oximetry 97 92 L 04/03/18 14:01 04/03/18 15:59 04/03/18 16:13 Temperature 98 F 98.2 F Pulse Rate 60 64 66 Respiratory Rate 17 17 Blood Pressure 118/62 120/89 Pulse Oximetry 93 L 92 L 04/03/18 16:59 04/03/18 17:00 04/03/18 18:34 Temperature Pulse Rate 70 70 71 Respiratory Rate Blood Pressure Pulse Oximetry 04/03/18 19:00 04/03/18 20:00 04/03/18 21:00 Temperature 98.4 F Pulse Rate 63 64 64 Respiratory Rate 16 Blood Pressure 114/63 Pulse Oximetry 92 L 04/03/18 22:00 04/03/18 23:00 04/04/18 00:00 Temperature 98.3 F Pulse Rate 78 63 60 Respiratory Rate 14 Blood Pressure 111/60 Pulse Oximetry 89 L 04/04/18 01:00 04/04/18 02:00 04/04/18 03:00 Temperature Pulse Rate 62 61 60 Respiratory Rate Blood Pressure Pulse Oximetry 04/04/18 04:00 04/04/18 05:00 04/04/18 06:00 Temperature 97.5 F L Pulse Rate 59 L 60 61 Respiratory Rate 16 Blood Pressure 120/60 Pulse Oximetry 91 L Intake & Output 04/03/18 04/04/18 04/04/18 18:59 06:59 18:59 Intake Total 1240 / 1240 Output Total 350 / 350 Balance 890 / 890 Weight 72.575 kg 77.7 kg Intake: IV 1000 / 1000 NS Inj 1,000 ML @ 70 mls/hr IV. 1000 / 1000 CONT .[id number] [facility] Rx#:[id number] Oral 240 / 240 Output: Urine 350 / 350 Other: Date of Last Bowel Movement 04/03/18 04/03/18 Weight On Admission 72.575 kg Narrative: awake and alert, speech clear, interactive no distress anicteric neck supple, no JVD regular rhythm Clear to auscultation. Breath sounds equal bilaterally. Abdomen soft, non-tender, nondistended. Extremities without clubbing, cyanosis, or edema. No obvious deformities. Motor grossly within normal limits. Five out of 5 muscle strength in the arms and legs. Results - Labs CBC & Chem 7: 04/04/18 01:54 04/04/18 01:54 Laboratory Results - last 24 hr 04/03/18 04/03/18 04/03/18 05:48 10:57 14:49 WBC RBC Hgb Hct MCV MCH MCHC RDW Plt Count MPV PT 10.7 INR 1.1 APTT 26.6 Sodium Potassium Chloride Carbon Dioxide Anion Gap BUN Creatinine Estimated GFR Random Glucose Calcium Magnesium Total Creatine Kinase 199 H CK-MB (CK-2) 3.2 CK-MB (CK-2) % 1.6 Troponin I 0.72 H* D 0.40 H D 04/03/18 04/04/18 04/04/18 17:46 01:54 01:54 WBC 8.3 RBC 4.24 Hgb 12.6 Hct 37.8 MCV 89.3 MCH 29.8 MCHC 33.4 RDW 14.3 Plt Count 159 MPV 7.6 PT INR APTT 35.7 H D Sodium 143 Potassium 3.7 Chloride 111 H Carbon Dioxide 26.3 Anion Gap 6 BUN 19 H Creatinine 0.96 Estimated GFR 67 L Random Glucose 106 Calcium 7.9 L Magnesium 2.0 Total Creatine Kinase CK-MB (CK-2) CK-MB (CK-2) % Troponin I 04/04/18 01:54 WBC RBC Hgb Hct MCV MCH MCHC RDW Plt Count MPV PT INR APTT 53.6 H D Sodium Potassium Chloride Carbon Dioxide Anion Gap BUN Creatinine Estimated GFR Random Glucose Calcium Magnesium Total Creatine Kinase CK-MB (CK-2) CK-MB (CK-2) % Troponin I Assessment and Plan - Plan 82-year-old female with a diagnosis of hypertension, dyslipidemia as per the patient. The patient also has extensive tobacco smoking history approximately half pack per day for 25 years. The patient quit smoking approximately 19 years ago. She presents to our emergency department with complaints of left- sided dull chest pain that has been on and off for the past couple of days. ACS, Non-ST segment elevation ID HYpertension -EKG shows normal sinus rhythm no acute ST segment or T wave changes. - Troponins initially were negative however are now increasing to 0.72. - continue on ASA, Plavix and heparin drip. - continue on statin and beta-vincent - cardiology ff- for cath today - on further discussion with her- states she was on Lipitor in the past but was discontinued- "made me feel funny" - does not really recall -any myalgias or any lab abnormalities -currently started on statins- so far tolerating- continue to monitor -check lipid panel ROC- creatinine improved - continue on gentle fluids As per the patient she states that she may have had a cardiac catheterization done in [place] by her levi maker who is Dr. Rodriguez and she says that the cardiac catheterization did not show any significant abnormalities. Incidental Pulmonary nodules -CT of the chest was done which was negative for pulmonary embolus. -Findings did show a right upper lobe 16 x 11 mm nodule and a left lower lobe 2.8 x 2.4 cm lesion which are findings concerning for possible malignancy. Once the patient has been stabilized she would likely need percutaneous biopsy of the nodules given her history. - can be done as OP- in [place] DVT prophylaxis, patient is currently on heparin drip. ADD. d/w Dr. gamble- cardiology- cath shows miimal CAD can be DC home today on ASA, BB and Lipitor - dose downt o 10 mg hs DC todfay- OP ff up with levi maker- in [place] FF up with Lung specialist for work up of pulmonary nodules
[2018-04-04] MEDS: Senna/Docusate Sodium 8.6/50 MG Tablet PO SCH (08:57)
[2018-04-04] MEDS: Metoprolol Tartrate 25 MG Tablet PO SCH (08:59)
[2018-04-04] MEDS ORDERED: Heparin/NS PF Inj 1,000 ML ONE (09:25)
[2018-04-04] MEDS ORDERED: fentaNYL Citrate Inj 100 MCG/2 ML Ampul ONE (09:25)
[2018-04-04] MEDS ORDERED: Heparin 10,000 UNITS/10 ML Vial (for IV use) ONE (09:25)
[2018-04-04] MEDS ORDERED: Lidocaine PF 1% Inj 30 ML Vial ONE (09:26)
[2018-04-04] MEDS ORDERED: Iohexol 350 MG/ML 50 ML Vial (for Cath Lab) IVCONTRAST ONE (09:55)
[2018-04-04] MEDS ORDERED: Atropine Inj 1 MG/ML Vial IV.PUSH PRN (10:07)
[2018-04-04] MEDS ORDERED: Sodium Chlor 0.9% Inj 250 ML IV.SIG ONE (10:07)
--- NOTE | 2018-04-04 10:07 | P.PCN ---
Date of procedure: 04/04/18 Pre-op diagnosis: Non-ST elevation myocardial infarction Procedure: precision lathe operator: Robert Valera MD Procedures performed: 1. Fluoroscopy with interpretation 2. Coronary angiography Methods: Risks, benefits, and alternatives were discussed with the patient. Patient understood and consented to the procedure. Patient was brought into the cardiac catheterization lab and placed on the catheterization table. The patient's right wrist was prepped and draped in a sterile fashion. The right wrist was anesthetized with 1% lidocaine. Right wrist was cannulated and a 6 Bhutanese 11 cm sheath was placed without difficulty. 200 mcg of intra-arterial nitroglycerin was administered and 5000 units of intravenous heparin. Coronary angiography: The left main coronary artery was selectively engaged with a 5 Bhutanese JL 3.5 Kandice catheter. The right coronary circulation was selectively engaged with a 5 Bhutanese JR 5 Kandice catheter. 1. Left main coronary artery has minor luminal irregularities 2. Left anterior descending coronary artery gives rise to diagonal branch and has minor luminal irregularities 3. Left circumflex coronary artery gives rise to an obtuse marginal branch with minor luminal irregularities 4. Right coronary is a dominant vessel giving rise to the posterior descending branch. The right coronary artery has minor luminal irregularities Conclusions: 1. Mild nonobstructive coronary disease Plan: We will continue with guideline directed medical therapy. Sheath was removed and Hemoband applied. We will monitor the patient for any postprocedural complications.
--- NOTE | 2018-04-04 10:18 | CATHPROC ---
[employer] HIS Report Study Information Study Number Admission Scheduled Start Study Start [id number] Apr 02 2018 11:18PM 04/04/2018 Apr 04 2018 9:26AM [place] [facility] STR Admit Source Facility Department Emergency department [facility] - Asset Availability Leader Physician and Clinical Staff Initial Pietro Rodriguez Operations Officer AfloatPete Brock RN Operations Officer AfloatRadha Jama RN Other Karen Snell,RT(R) Recorder Palmer Lai,RT(R) Shanthi LakeRT(R) (BS) Procedures Performed Procedure Location (Site) Vessel Name Coronary Angiograms LCA Left Coronary Coronary Angiograms RCA Right Coronary L Heart Cath Equipment Time Opener Tender Description Size Mfg Part Number Used/Scraped TRANSDUCER, TRUWAVE [id number] 09:30 [employer] CRANE * Used W/STOCKCOCK *[id number] *[id number] *[id number] 09:30 [employer] BLANKET,WARM AIR CCL * Used *[id number] 09:30 [employer] PACK, CCL CUSTOM * Used *[id number] 09:30 [employer] SUPPORT, ARTERIAL ADULT [id number] *[id number] Used BAND, RADIAL COMPRESSION TR [id number] 10:00 [employer] 24CM Used SHORT 24 *[id number] SHEATH, FR6 RADIAL PRELUDE 09:30 [employer] FR 6 [id number] Used EASE 11CM [id number] 09:30 [employer] WIRE, EXCHANGE 260CM 3MMJ 260CM Used *[id number] 09:30 NAMIC MANIFOLD, 4 PORT * Used *[id number] 09:30 [employer] OMNIPAQUE, 350 MG, 150ML 150ML [id number] Used History: Current Medications Medication Dosage/Unit Route Frequency Last Date/Time Taken Beta Miryam History: Allergies Allergy Reaction codeine RASH History: Risk Factors Family History of Hypertension Dyslipidemia Previous HI Previous Heart Failure Premature CAD Yes No No No No Prior Valve Prior PCI Prior CABG Surgery No No No Cerebrovascular Peripheral Artery Chronic Lung On Dialysis Diabetes Disease Disease Disease No No No Yes No History: Symptoms/Diagnosis Selection Items Chest pain SOB History: Stress Tests Stress or Imaging Studies Performed No History: Other Disease Selection Items HTN History: Other Current Smoker Method Quit Packs a Day Years Used Pack Years No Cigarettes 20 Years Ago 05 27 20 Labs Hgb (g/dl) Hct (%) RBC (MIL/MM3) WBC (l/cumm) Platelets (thousands) 11.60-17.00 35.00-51.00 4.00-5.90 4.00-11.00 150.00-450.00 12.6 37.8 4.2 8.3 159 Glucose (mg/dl) BUN (mg/dl) Creatinine (mg/dl) BUN:Creatinine (1:x) 74.00-106.00 7.00-18.00 0.50-1.30 10.00-20.00 106 19 0.9 21.1 Na (meq/l) K (meq/l) Cl (meq/l) CO2 (mmol/L) Ca (mg/dl) 136.00-145.00 3.50-5.10 98.00-107.00 21.00-32.00 8.50-10.10 143 3.7 111 26.3 7.9 PT (sec) PTT (sec) INR (PTT:PT) 9.80-11.60 24.30-30.10 0.90-1.10 10.7 26.6 1.1 Troponin I (ng/ml) CPK-MB (ng/ML) 0.02-0.05 0.50-3.60 0.72 3.2 Medication Medication Total Dose (Bolus/Oral) Medication Total Dosage/Unit 1% XYLOCAINE 5 mL FENTANYL 25 mcg NTG (IC) 200 mcg VERSED 1 mg Medications (Bolus/Oral) Medication Time Given Dosage/Unit Administered By Reason FENTANYL 04/04/2018 9:48:21 AM 25 mcg Pete Glover 25 mcg FENTANYL given in lab by Pete Glover RN in Left Antecubital via Peripheral IV. VERSED 04/04/2018 9:48:40 AM 1 mg Pete Glover 1 mg VERSED given in lab by Pete Glover RN in Left Antecubital via Peripheral IV. 1% XYLOCAINE 04/04/2018 9:51:41 AM 5 mL Pietro Valera Patient arrived on 5 mL 1% XYLOCAINE given by Pietro Valera in Right Radial via Subcutaneous. NTG (IC) 04/04/2018 9:52:55 AM 200 mcg Pietro Valera 200 mcg NTG (IC) given in lab by Pietro Valera in Right Radial via Intra-arterial. Medication (Drip) Medication Time Given Dosage/Unit Concentration/Unit Diluent (ml) Solution IV Solutions 04/04/2018 9:26:57 AM 0 mL (IV) 1000 NaCl .9 Patient arrived on IV Solutions via Peripheral IV. Pump/Drip Flow = 20 ml/hr using NaCl .9. Initial Case Assessment Cardiovascular HR Rhythm NIBP Chest Pain 70 Sinus 127/69 0 Edema Present Skin color Skin None Normal Warm Dry Circulatory - Right Pulses Dorsalis Pedis Femoral Radial 3 3 3 Scale (0,1,2,3,4,d) Scale (0,1,2,3,4,d) Neurological State Oriented to time-place- Alert Moves all extremities person Respiration - General Respiration Rate SpO2 (%) O2 (lpm) (B/min) 15 91 2 Final Case Assessment Cardiovascular HR Rhythm NIBP Chest Pain 57 Sinus 117/56 0 Edema Present Skin color Skin None Normal Warm Dry Circulatory - Right Pulses Dorsalis Pedis Femoral Radial 3 3 3 Scale (0,1,2,3,4,d) Scale (0,1,2,3,4,d) Neurological State Oriented to time-place- Alert Moves all extremities person Respiration - General Respiration Rate SpO2 (%) O2 (lpm) (B/min) 15 93 4 Chronological Log Time Study Chronological Log 9:21:31 Patient arrived via Bed. 9:26:39 Patient Name, D.O.B, / Armband Verified By R.N. 9:26:39 Consent signed by the physician and the patient and verified by the Asset Availability Leader staff. 9:26:40 Pre-op and post- op instructions given; patient acknowledges understanding of instructions. 9:26:40 Verbal Stimulation=2 Physical Stimulation=2 Airway=2 Respiration=2 TOTAL=8. (0=absent, 1=kidd ited, 2=present) 9:26:46 Presedation assessment performed by Asset Availability Leader RN. 9:26:48 Allens test performed on the right radial and ulnar artery. 9:26:51 Patient has been NPO for More than 6Hrs. 9:26:52 Skin Breakdown-none per patient. 9:26:53 Patient Warmer Placed on the Table. 9:26:56 Ramila Prominences Protected 9:26:57 A # 20 IV was noted in the Antecubital (left). Grade = 0 9:26:57 Patient arrived on IV Solutions via Peripheral IV. Pump/Drip Flow = 20 ml/hr using NaCl .9. 9:27:00 History and physical on the chart or being dictated. Assessment: Initial Case, HR=70 BPM, Rhythm=Sinus, XPZZ=091/69 mmhg, Chest Pain=0, Edema=None, Color=Normal, Skin = Warm, Dry 9:27:01 Right Pulses: Kennedy Ped=3, Femoral=3, Radial=3 Neurological: State=Alert, Ox3, RAMSAY Respiration: Resp=15 B/min, SpO2=91 %, O2=2 lpm 9:31:18 A # 20 IV was noted in the Antecubital (right). Grade = 0 Vitals capture started with the following parameters, Patient=Adult, Interval=5 min, Initial Pre muole=695 mmHg, 9:31:47 Deflation Rate=5 mmHg, Cuff placed on Left Arm 9:32:28 HR=67 bpm, OLIR=781/69 mmhg, SpO2=93.0 %, Resp=15 B/min, Pain=0, Riana=10, Pennington=2 9:37:29 HR=63 bpm, AKLZ=022/66 mmhg, SpO2=97.0 %, Resp=13 B/min, Pain=0, Riana=10, Pennington=2 9:41:39 Right Radial and groin(s) prepped with 2% chlorhexidine, and draped after a 3 min. waiting t thanh. 9:42:30 HR=57 bpm, EMVZ=833/59 mmhg, SpO2=97.0 %, Resp=14 B/min, Pain=0, Riana=10, Pennington=2 9:42:47 MD paged 9:43:29 Pressure channel 1 zeroed. 9:47:06 MD arrived. 9:47:31 HR=64 bpm, QWSD=025/63 mmhg, SpO2=92.0 %, Resp=12 B/min, Pain=0, Riana=10, Pennington=2 9:47:32 Reference ECG taken 9:48:21 25 mcg FENTANYL given in lab by Pete Glover, RN in Left Antecubital via Peripheral IV. 9:48:40 1 mg VERSED given in lab by Pete Glover RN in Left Antecubital via Peripheral IV. Time Out. Correct patient, correct procedure, correct physician, labs, allergies, and equipment verified with rd lab technician 9:51:12 team present. Fire risk assesment completed (see hard stop sheet for coding). Time Out Concu rred by MD and individual staff in procedure. 9:51:41 Patient arrived on 5 mL 1% XYLOCAINE given by Pietro Valera in Right Radial via Subcutaneou s. 9:51:43 Case Start 9:52:28 HR=57 bpm, GZEJ=868/60 mmhg, SpO2=92.0 %, Resp=14 B/min, Pain=0, Riana=10, Pennington=2 9:52:48 Access site was Right Radial Artery . 9:52:49 A sheath was advanced into the Fem Art (right) using the ~TECHNIQUE~ technique. 9:52:55 200 mcg NTG (IC) given in lab by Pietro Valera in Right Radial via Intra-arterial. A JR 5.0 INFINITI CATHETER FR 5 was advanced over a wire. OMNIPAQUE, 350 MG, 150ML 150ML was use d for 9:53:41 injections. Recorded Pressure: LV, HR=62, Condition=Condition 1 9:54:32 (Left Ventricle) LV 140/9/18 Recorded Pressure: LV, Ao, HR=61, Condition=Condition 1 9:54:36 (Left Ventricle) LV 138/9/16, (Aorta) Ao 133/62/90 9:55:26 The RCA was injected and visualized at various angles. OMNIPAQUE, 350 MG, 150ML 150ML use d. After removing the current catheter a JL 3.5 INFINITI CATHETER FR 5 was advanced over a WIRE, EXCHANGE 260CM 9:56:10 3MMJ 260CM. 9:57:14 The LCA was injected and visualized at various angles. OMNIPAQUE, 350 MG, 150ML 150ML use d. 9:57:27 HR=65 bpm, UTRD=988/65 mmhg, SpO2=90.0 %, Resp=19 B/min, Pain=0, Riana=10, Pennington=2 9:58:11 Catheter was removed 9:58:22 Case End (Physician broke scrub) 9:58:37 No case complications noted. 9:58:38 Cine recording checked. 10:01:48 Bedside Report will be given. Radial Compression Device Used. 11 mLs of air placed in BAND, RADIAL COMPRESSION TR SHORT 24 2 4CM. Affected 10:01:52 hand 93 % O2 saturation. 10:02:32 HR=57 bpm, XIAW=301/56 mmhg, SpO2=92.0 %, Resp=21 B/min, Pain=0, Riana=10, Pennington=2 10:03:28 A Left Heart Cath was performed. Assessment: Final Case, HR=57 BPM, Rhythm=Sinus, AQHX=585/56 mmhg, Chest Pain=0, Edema=None, Color=Normal, Skin = Warm, Dry 10:03:32 Right Pulses: Kennedy Ped=3, Femoral=3, Radial=3 Neurological: State=Alert, Ox3, RAMSAY Respiration: Resp=15 B/min, SpO2=93 %, O2=4 lpm 10:05:12 Vitals capture stopped. 10:10:[address] [facility] End Study - Contrast Media Used In Study Contrast Total Opened (mL) Total Used (mL) Total Wasted (mL) Omnipaque 350 150 25 125 End Study - Maximum Contrast Load Max Contrast Load (mL) 431.6 End Study - Radiation Exposure Fluoro Time (minutes) 1.6 End Study - Patient Disposition Complications Transferred To Interventional Outcome No Telemetry Bed No attempt made
[2018-04-04 11:43] LABS: Chol/HDL Ratio 3.32 Ratio; HDL Cholesterol 54.7 mg/dL (40.0-60.0)
--- NOTE | 2018-04-04 17:26 | ECHRPT ---
Indication: Chest Pain CONCLUSIONS Normal left ventricular size. Wall thickness is measured at the upper limits of normal. The left ventricular systolic function is low normal with an estimated ejection fraction in the rang e of 50- 55%. Trileaflet aortic valve. Aortic valve sclerosis is present. BP: / HR: Rhythm: MEASUREMENTS (Male / Female) Normal Values Technical Quality:Fair 2D ECHO LV Diastolic Diameter PLAX 5.0 cm 4.2 - 5.9 / 3.9 - 5.3 cm LV Systolic Diameter PLAX 4.0 cm IVS Diastolic Thickness 1.0 cm 0.6 - 1.0 / 0.6 - 0.9 cm LVPW Diastolic Thickness 1.0 cm 0.6 - 1.0 / 0.6 - 0.9 cm LV Relative Wall Thickness 0.4 RV Internal Dim ED PLAX 3.1 cm LVOT Diameter 2.3 cm Aortic Root Diameter 2.8 cm LA Systolic Diameter LX 3.5 cm 3.0 - 4.0 / 2.7 - 3.8 cm M-MODE AV Cusp Separation MM 1.8 cm DOPPLER AV Peak Velocity 140.0 cm/s AV Peak Gradient 7.8 mmHg LVOT Peak Velocity 101.0 cm/s LVOT Peak Gradient 4.1 mmHg AV Area Cont Eq pk 3.0 cm Mitral E Point Velocity 89.8 cm/s Mitral A Point Velocity 97.7 cm/s Mitral E to A Ratio 0.9 LV E' Lateral Velocity 5.7 cm/s Mitral E to LV E' Lateral Ratio 15.9 LV E' Septal Velocity 5.8 cm/s Mitral E to LV E' Septal Ratio 15.6 TR Peak Velocity 273.0 cm/s TR Peak Gradient 29.8 mmHg Right Atrial Pressure 10.0 mmHg Pulmonary Artery Systolic Pressu 39.8 mmHg Right Ventricular Systolic Press 39.8 mmHg PV Peak Velocity 73.3 cm/s PV Peak Gradient 2.1 mmHg FINDINGS LEFT VENTRICLE Normal left ventricular size. Wall thickness is measured at the upper limits of normal. The left ventricular systolic function is low normal with an estimated ejection fraction in the rang e of 50- 55%. RIGHT VENTRICLE Normal right ventricular size and systolic function. LEFT ATRIUM The left atrial size is normal. RIGHT ATRIUM The right atrial size is normal. ATRIAL SEPTUM Normal atrial septal thickness without atrial level shunting by limited color doppler interrogation. AORTA The aortic root and proximal ascending aorta are normal in size on limited imaging. MITRAL VALVE Trace mitral valve regurgitation. AORTIC VALVE Trileaflet aortic valve. Aortic valve sclerosis is present. TRICUSPID VALVE There is trace tricuspid valve regurgitation. The estimated pulmonary arterial pressure is 40 mmHg. PULMONARY VALVE Mild pulmonary valve regurgitation. VESSELS The inferior vena cava is normal in size. PERICARDIUM No pericardial effusion. Pietro Valera MD, FACC (Electronically Signed) Final Date:04 April 2018 17:25
--- NOTE | 2018-04-04 19:13 | P.DS ---
Date of admission: 04/02/18 23:18 Primary care physician: No Primary Care Physician Anticipated date of discharge: 04/04/18 Brief History from admission: 82-year-old female with a past medical history significant for coronary artery disease and COPD presents to the emergency department for evaluation of dizziness, nausea, vomiting, shortness of breath and chest discomfort. The patient reports she started having intermittent chest tightness since last night. She states that she had abdominal pain starting yesterday and felt as though the room was spinning around her. She has had several episodes of emesis and a sustains feeling of nausea. She denies any fever/chills. No diarrhea. No focal neurologic deficits. Patient update on day of discharge: no complains no chest discomfort or shortness of breath DS: Medications - Discharge Medications Prescriptions: aspirin 81 mg PO DAILY 90 Days #90 tab atorvastatin [Lipitor] 10 mg PO HS #30 tab metoprolol tartrate 12.5 mg PO BID 30 Days #30 tab DS: Summary Hospital Course: 82-year-old female with a diagnosis of hypertension, dyslipidemia as per the patient. The patient also has extensive tobacco smoking history approximately half pack per day for 25 years. The patient quit smoking approximately 19 years ago. She presents to our emergency department with complaints of left- sided dull chest pain that has been on and off for the past couple of days. ACS, Non-ST segment elevation FL HYpertension -EKG shows normal sinus rhythm no acute ST segment or T wave changes. - Troponins initially were negative however are now increasing to 0.72. - continue on ASA, Plavix and heparin drip. - continue on statin and beta-vincent - cardiology ff- for cath today - on further discussion with her- states she was on Lipitor in the past but was discontinued- "made me feel funny" - does not really recall -any myalgias or any lab abnormalities -currently started on statins - so far tolerating- continue to monitor -check lipid panel - LDL 102 ROC- creatinine improved - continue on gentle fluids Incidental Pulmonary nodules -CT of the chest was done which was negative for pulmonary embolus. -Findings did show a right upper lobe 16 x 11 mm nodule and a left lower lobe 2.8 x 2.4 cm lesion which are findings concerning for possible malignancy. Once the patient has been stabilized she would likely need percutaneous biopsy of the nodules given her history. - can be done as OP- in [place] DVT prophylaxis, patient is currently on heparin drip. ADD. back from cath d/w Dr. gamble- cardiology- cath shows miimal CAD can be DC home today on ASA, BB and Lipitor - dose down to 10 mg hs DC today- OP ff up with guard captain- in [place] FF up with Lung specialist for work up of pulmonary nodules - Time Spent with Patient Total time spent providing and/or coordinating discharge services: Greater than 30 minutes - Quality: VTE Deep Vein Thrombosis/Pulmonary Embolism Present on Admission: No Exam Vital signs: Vital Signs 04/03/18 20:00 04/03/18 21:00 04/03/18 22:00 Temperature 98.4 F Pulse Rate 64 64 78 Respiratory Rate 16 Blood Pressure 114/63 Pulse Oximetry 92 L 04/03/18 23:00 04/04/18 00:00 04/04/18 01:00 Temperature 98.3 F Pulse Rate 63 60 62 Respiratory Rate 14 Blood Pressure 111/60 Pulse Oximetry 89 L 04/04/18 02:00 04/04/18 03:00 04/04/18 04:00 Temperature 97.5 F L Pulse Rate 61 60 59 L Respiratory Rate 16 Blood Pressure 120/60 Pulse Oximetry 91 L 04/04/18 05:00 04/04/18 06:00 04/04/18 07:00 Temperature Pulse Rate 60 61 60 Respiratory Rate Blood Pressure Pulse Oximetry 04/04/18 08:00 04/04/18 09:00 04/04/18 10:00 Temperature 97.5 F L Pulse Rate 92 H 70 68 Respiratory Rate 20 Blood Pressure 129/71 Pulse Oximetry 92 L 04/04/18 11:00 04/04/18 12:00 04/04/18 13:00 Temperature Pulse Rate 56 L 60 62 Respiratory Rate 20 Blood Pressure 104/54 L Pulse Oximetry 92 L 04/04/18 14:00 04/04/18 15:00 04/04/18 16:00 Temperature Pulse Rate 64 64 60 Respiratory Rate 20 Blood Pressure 119/62 Pulse Oximetry 92 L 04/04/18 17:00 Temperature Pulse Rate 64 Respiratory Rate Blood Pressure Pulse Oximetry Intake & Output 04/04/18 04/04/18 04/05/18 06:59 18:59 06:59 Intake Total 2850 / 2850 Balance 2850 / 2850 Weight 77.7 kg Intake: IV 2250 / 2250 Heparin/D5W 25,000 U/250 mL 25, 250 / 250 000 unit In 250 ml @ 900 UNITS/ HR 9 mls/hr IV.CONT TITRATE PRN Rx#:[id number] NS Inj 1,000 ML @ 70 mls/hr IV. 1999 CONT .[id number] CINTIA Rx#:[id number] Oral 600 / 600 Other: # Voids 4 Date of Last Bowel Movement 04/03/18 04/03/18 Narrative: awake and alert, speech clear, interactive no distress anicteric neck supple, no JVD regular rhythm Clear to auscultation. Breath sounds equal bilaterally. Abdomen soft, non-tender, nondistended. Extremities without clubbing, cyanosis, or edema. No obvious deformities. Motor grossly within normal limits. Five out of 5 muscle strength in the arms and legs. Results Procedures completed during hospitalization: cardiac cath Labs on day of discharge: Labs from last 24 hours 04/04/18 04/04/18 04/04/18 01:54 01:54 01:54 WBC RBC Hgb Hct MCV MCH MCHC RDW Plt Count MPV APTT 53.6 H D Sodium 143 Potassium 3.7 Chloride 111 H Carbon Dioxide 26.3 Anion Gap 6 BUN 19 H Creatinine 0.96 Estimated GFR 67 L Random Glucose 106 Calcium 7.9 L Magnesium 2.0 Triglycerides 128 Cholesterol 182 LDL Cholesterol, Calc 102 H HDL Cholesterol 54.7 Cholesterol/HDL Ratio 3.32 04/04/18 01:54 WBC 8.3 RBC 4.24 Hgb 12.6 Hct 37.8 MCV 89.3 MCH 29.8 MCHC 33.4 RDW 14.3 Plt Count 159 MPV 7.6 APTT Sodium Potassium Chloride Carbon Dioxide Anion Gap BUN Creatinine Estimated GFR Random Glucose Calcium Magnesium Triglycerides Cholesterol LDL Cholesterol, Calc HDL Cholesterol Cholesterol/HDL Ratio - Impressions ITS Impressions Chest X-Ray 04/02/18 19:01 CONCLUSION: Mild cardiomegaly with minimal bibasilar parenchymal changes 1 cm nodule right upper lobe. Chest CTA 04/02/18 20:39 CONCLUSION: 1. No evidence for pulmonary embolism. 2. Spiculated nodule right upper lobe measures 16 x 11 mm. This is concerning for neoplasm. 3. Parenchymal nodule with central cavitation left lower lobe measures 2.8 x 2.4 cm also concerning for neoplasm versus less likely infectious process. This is amenable to percutaneous CT-guided biopsy. 4. Scattered parenchymal densities in the lower lobes likely atelectasis. 5. Enlarged heterogeneous thyroid gland containing multiple nodules greater on the right. Discharge Plan - Discharge Disposition Patient Disposition: 01 Discharge Home - Discharge Condition Condition: Stable - Discharge Order Discharge Orders: Discharge Order (Routine); Ordered 04/04/18 Ordered By: Ford Mann - Discharge Details Anticipated Discharge Date: 04/04/18 - Physicians Team Primary Care Provider: Primary Care Ameliai,Cahsity Attending Provider: Ford Mann Other Providers: CashBet,Insurance ; Pietro Valera MD
--- NOTE | 2018-04-06 09:41 | P.CODE44 ---
Code 44 - Inpatient to Obs - Code 44 - Inpatient to Obs Statement: A clinical review of the case has been conducted by a member of the Utilization Review Committee. The findings indicate the patient meets criteria for observation status. The information and decision has been discussed with the attending physician Ford Mann MD and physician provider Ward Melissa MD. Notes:: Late entry
== END 2018-04-04 17:38 | disposition home or self-care (01) ==
LOC: NEPE 18:32 → NEDA 18:32 → NEDH 04-03 01:01 → HCIS 04-03 13:53
PROVIDERS: ADMIT Internal Medicine; ATTEND Internal Medicine